=== PATIENT | male | born 1950 | race Caucasian/White ===

== ENCOUNTER 2018-12-08 09:20 | Outpatient (CLI) | payer OTHER ==
--- NOTE | 2018-12-08 09:49 | RAD ---
EXAM: Two views chest PROVIDED CLINICAL HISTORY: Dyspnea COMPARISON: 11/02/2015 FINDINGS: Cardiac and mediastinal silhouette appears within normal limits. Lungs appear free of significant opa city. No pleural fluid or pneumothorax apparent. IMPRESSION: No evidence for an acute cardiopulmonary process.
== END 2018-12-08 09:21 | disposition home or self-care (01) ==
LOC: RAD 09:20
PROVIDERS: ATTEND Internal Medicine Critical Care Medicine
DX: R06.00 Dyspnea, unspecified (principal)
CPT/HCPCS: 71046

== ENCOUNTER 2021-05-15 18:30 | Outpatient (CLI) | payer OTHER | END 2021-05-15 18:31 | disposition home or self-care (01) | LOC: SLEEPLAB 18:30 | PROVIDERS: ATTEND Internal Medicine | DX: G47.33 Obstructive sleep apnea (adult) (pediatric) (principal); R53.83 Other fatigue; R06.83 Snoring; F32.9 Major depressive disorder, single episode, unspecified; G47.00 Insomnia, unspecified; J30.2 Other seasonal allergic rhinitis | CPT/HCPCS: 95806 ==

== ENCOUNTER 2025-02-28 22:11 | Emergency (ER) | payer MEDICARE ==
[2025-02-28] MEDS ORDERED: diphenhydrAMINE 50 MG/ML VIAL ONE (22:40)
[2025-02-28] MEDS ORDERED: Haloperidol 5 MG TAB PO SCH (23:00)
== END 2025-03-01 06:31 | disposition home or self-care (01) ==
LOC: ERS 22:11
DX: T40.711A Poisoning by cannabis, accidental (unintentional), initial encounter (principal)
CPT/HCPCS: 96361; 96374; 96375; J1200; J1630